=== PATIENT | male | born 1985 | race Caucasian/White ===

== ENCOUNTER 2017-08-21 13:06 | Emergency (ER) | payer OTHER ==
[~2017-08-21] VITALS: Ht 198.1 cm; Wt 115.5 kg
[2017-08-21 14:08] LABS: HEMATOCRIT 45.2 % (38.0-50.0); HEMOGLOBIN 15.8 G/DL (12.5-16.6); MCH 30.3 PG (29.0-34.0); MCV 86.6 FL (86-99); PLATELET COUNT 227 K/uL (156-360); RBC DIS.WIDTH-CV 12.1 % (11.8-14.6); RBC DIS.WIDTH-SD 38.4 % (39-53); RED BLOOD COUNT 5.22 M/uL (4.00-5.50); WHITE BLOOD COUNT 6.9 K/uL (4.1-10.2)
[2017-08-21 14:16] LABS: CHLORIDE 103 mEq/L (99-109); POTASSIUM 4.1 mEq/L (3.7-5.4); SODIUM 139 mEq/L (136-147)
[2017-08-21 14:18] LABS: GLUCOSE 86 mg/dL (70-99)
[2017-08-21 14:22] LABS: GFR ESTIMATE (CALCULATED) > 59 mL/min/ (58.99-99999); UREA NITROGEN (BUN) 10 mg/dL (9-23)
[2017-08-21 14:27] LABS: APPEARANCE SL.HAZY ((CLEAR)); BILIRUBIN NEGATIVE; BLOOD NEGATIVE; COLOR YELLOW ((YELLOW)); GLUCOSE (STRIP) 50; KETONES NEGATIVE; LEUKOCYTES NEGATIVE; NITRITE NEGATIVE; PROTEIN (STRIP) NEGATIVE; SPECIFIC GRAVITY 1.026 (1.000-1.030)
[2017-08-21 14:31] LABS: BACTERIA NONE SEEN /HPF; EPITHELIAL CELLS RARE /HPF; MUCUS TRACE /LPF; RED BLOOD CELLS 0-5 /HPF (0-5); UCUL ADDED? NO; WHITE BLOOD CELLS 0-5 /HPF (0-5)
[2017-08-21] MEDS ORDERED: MOTRIN800 MG PO (17:10)
[2017-08-21] MEDS ORDERED: SKELAXIN800 MG PO (17:10)
[2017-08-21] MEDS ORDERED: VOLTAREN 1% GE100 GM TP (17:10)
[2017-08-21] MEDS ORDERED: LIDODERM 5% P1 PATCH TD (17:10)
[2017-08-21 17:34] VITALS: BP 130/81
== END 2017-08-21 17:37 | disposition home or self-care (01) ==
LOC: EME 13:06
DX: M54.9 Dorsalgia, unspecified (principal); G89.29 Other chronic pain; M54.2 Cervicalgia; R51 Headache
CPT/HCPCS: 71046; 74176; 80048; 81003; 85027; 99281; 99283; J1885